=== PATIENT | male | born 1995 | race Caucasian/White ===

== ENCOUNTER 2017-06-30 02:48 | Emergency (ER) | payer OTHER | END 2017-06-30 04:40 | disposition other institution (70) | LOC: ED 02:48 | DX: Z02.89 Encounter for other administrative examinations (principal) ==

== ENCOUNTER 2017-06-30 02:48 | Emergency (ER) | payer SELFPAY ==
[2017-06-30 04:39] VITALS: BP 100/53
== END 2017-06-30 04:40 | disposition other institution (70) ==
LOC: ED 02:48
DX: S40.012A Contusion of left shoulder, initial encounter (principal); V89.2XXA Person injured in unspecified motor-vehicle accident, traffic, initial encounter; Y93.19 Activity, other involving water and watercraft; Y92.488 Other paved roadways as the place of occurrence of the external cause; Y99.8 Other external cause status
CPT/HCPCS: Q0162